=== PATIENT | female | born 1965 | race Caucasian/White ===

== ENCOUNTER 2018-01-06 16:46 | Emergency (ER) | payer OTHER ==
[2018-01-06 17:10] VITALS: BP 157/81
[2018-01-06] MEDS ORDERED: Ketorolac 60 MG/2 ML SDV IM ONE (17:22)
--- NOTE | 2018-01-06 17:34 | EDM.PDOC ---
ED HPI GENERAL MEDICAL PROBLEM - General Chief Complaint: Back Pain or Injury Stated Complaint: FELL AND HURT RT RIBS AND RT KNEE Time Seen by Provider: 01/06/18 17:15 Source of Information: Reports: Patient, Family History Limitations: Reports: No Limitations - History of Present Illness INITIAL COMMENTS - FREE TEXT/NARRATIVE: 52-year-old female was at a local store when she stumbled forward landing on her knees and hands. She has pain and swelling on the anterior aspect of the right knee which she has had a partial knee surgery in the past. She also pulled some muscles or hurt her ribs on the right flank area. Only her knees actually struck the floor. No shortness of breath and she has minimal pain when sitting still. Onset: Sudden Duration: Hour(s): (Within the past hour) Location: Reports: Chest (Right flank area), Back, Lower Extremity, Right Associated Symptoms: Reports: Chest Pain (Right posterior chest is sore). Denies: Headaches, Nausea/Vomiting, Shortness of Breath Right Lower Chest Pain Score (Numeric/FACES): 6 - Related Data Allergies Allergy/AdvReac Type Severity Reaction Status Date / Time niacin Allergy Unknown Redness Verified 01/06/18 17:05 [From Niaspan Extended-Release] Penicillins Allergy Unknown Rash Verified 01/06/18 17:05 Home Meds: Home Meds Vitamin B Complex with C [Super B Complex With C] 1 cap PO DAILY 01/16/15 [ History] Esomeprazole Magnesium [Nexium] 20 mg PO DAILY 01/06/18 [History] Past Medical History HEENT History: Reports: Impaired Vision Other Cardiovascular History: seratonin imbalance Gastrointestinal History: Reports: GERD Musculoskeletal History: Reports: Connective Tissue Disease, Fracture Psychiatric History: Reports: Depression - Infectious Disease History Infectious Disease History: Reports: Chicken Pox - Past Surgical History Other HEENT Surgeries/Procedures: eye surgery when a young child Female Surgical History: Reports: Hysterectomy Social & Family History - Tobacco Use Smoking Status *Q: Never Smoker Second Hand Smoke Exposure: No - Caffeine Use Caffeine Use: Reports: Coffee, Energy Drinks, Soda, Tea - Recreational Drug Use Recreational Drug Use: No ED ROS GENERAL - Review of Systems Review Of Systems: See Below Constitutional: Denies: Fever, Chills Respiratory: Reports: Pleuritic Chest Pain. Denies: Shortness of Breath Cardiovascular: Reports: Chest Pain GI/Abdominal: Denies: Abdominal Pain, Nausea, Vomiting : Reports: No Symptoms Skin: Reports: Bruising (Some bruising is present over the anterior aspect of the right knee) Neurological: Reports: Other (Her knee feels "numb".) ED EXAM, GENERAL - Physical Exam Exam: See Below Exam Limited By: No Limitations General Appearance: Alert, No Apparent Distress (No significant distress when laying still, she is very uncomfortable with movement) Head: Atraumatic Neck: Supple, Non-Tender Respiratory/Chest: No Respiratory Distress, Lungs Clear, Other (She reacts with exquisite tenderness to palpation along the right posterior ribs in the flank area, there is no crepitus or bruising) Cardiovascular: Regular Rate, Rhythm Extremities: Other (Some bruising and swelling is present over the anterior tibial plateau just distal to the patella. Valgus and varus stress to the knee is stable and nontender, patella is nontender) Course - Vital Signs Last Recorded V/S: Last Vital Signs Temp 98.3 F 01/06/18 17:15 Pulse 80 01/06/18 17:15 Resp 18 01/06/18 17:15 BP 157/81 H 01/06/18 17:15 Pulse Ox 98 01/06/18 17:15 - Orders/Labs/Meds Orders: Active Orders 24 hr Category Date Time Status Chest 2V [CR] Routine Exams 01/06/18 17:21 Taken Knee 3V Rt [CR] Stat Exams 01/06/18 17:21 Taken Meds: Medications Discontinued Medications Generic Name Dose Route Start Last Admin Trade Name João PRN Reason Stop Dose Admin Ketorolac Tromethamine 60 mg 01/06/18 17:22 01/06/18 17:25 Toradol IM 01/06/18 17:23 60 mg ONETIME ONE Administration - Re-Assessments/Exams Free Text/Narrative Re-Assessment/Exam: 01/06/18 17:34 A two-view chest x-ray and right knee x-ray were obtained after 60 mg of IM Toradol was given. 01/06/18 17:46 Chest x-ray is normal, knee x-ray shows good placement of the medial arthroplasty. A three-inch Sharan wrap was applied to the knee, the patient was given 10 hydrocodone for extra pain control and will take ibuprofen and ice down sore areas. Recheck in 3-4 days if not improving satisfactorily. Departure - Departure Time of Disposition: 17:57 Disposition: Home, Self-Care 01 Condition: Good Clinical Impression: Contusion of right knee Qualifiers: Encounter type: initial encounter Qualified Code(s): S80.01XA - Contusion of right knee, initial encounter Strain of chest wall Qualifiers: Encounter type: initial encounter Qualified Code(s): S29.011A - Strain of muscle and tendon of front wall of thorax, initial encounter - Discharge Information Instructions: Contusion, [id number] Referrals: Adarsh Colon HEALTHCARE TRANSLATOR [Primary Care Provider] - Forms: ED Department Discharge Care Plan Goals: Wrap knee for comfort, ice sore areas for the next 2 days and a regular dose of ibuprofen should help. Use stronger pain medications if needed especially when trying to rest. Increase activity as tolerated and consider rechecking in 4-6 days if not improving satisfactorily. - My Orders Last 24 Hours: My Active Orders 01/06/18 17:21 Chest 2V [CR] Routine Knee 3V Rt [CR] Stat - Assessment/Plan Last 24 Hours: My Active Orders 01/06/18 17:21 Chest 2V [CR] Routine Knee 3V Rt [CR] Stat
--- NOTE | 2018-01-09 09:21 | CR ---
Knee 3V Rt CLINICAL HISTORY: Knee pain, fall FINDINGS: No acute fracture or dislocation is noted. There are no osseous lesions. Patient has a medi al compartment hemiarthroplasty. There is some generalized periprosthetic lucency. Impression: No acute fracture Medial hemiarthroplasty. There is some periprosthetic lucency. This is nonspecific but can be seen wi th loosening
--- NOTE | 2018-01-09 09:45 | CR ---
CHEST: 2 view CLINICAL HISTORY:Fall, injury COMPARISON:None FINDINGS: Heart size and pulmonary vascular are normal. There are atherosclerotic changes in the aor ta. Lung arellano are clear.. IMPRESSION: No acute cardiopulmonary process
== END 2018-01-06 17:57 | disposition home or self-care (01) ==
LOC: JP.ED 16:46
DX: S29.011A Strain of muscle and tendon of front wall of thorax, initial encounter (principal); S80.01XA Contusion of right knee, initial encounter; K21.9 Gastro-esophageal reflux disease without esophagitis; Z79.899 Other long term (current) drug therapy; Z88.0 Allergy status to penicillin; Z88.8 Allergy status to other drugs, medicaments and biological substances; W18.30XA Fall on same level, unspecified, initial encounter
CPT/HCPCS: 71046; 73562; 96372; 99284; J1885

== ENCOUNTER 2018-08-26 22:24 | Emergency (ER) | payer BC, OTHER ==
[2018-08-26 22:39] VITALS: BP 176/93
--- NOTE | 2018-08-26 22:53 | EDM.PDOC ---
ED HPI GENERAL MEDICAL PROBLEM - General Chief Complaint: Respiratory Problem Stated Complaint: cough panic attack Time Seen by Provider: 08/26/18 22:40 Source of Information: Reports: Patient, Old Records, RN History Limitations: Reports: No Limitations - History of Present Illness INITIAL COMMENTS - FREE TEXT/NARRATIVE: 52 yo female non-smoker with no hx of asthma presents with onset today of a dry cough that is now keeping her awake. Has some rhinorrhea. No fever. Mild SOB associated wit severe coughing spells only. No chest pain. Onset: Today Onset Date: 08/26/18 Duration: Hour(s):, Getting Worse Location: Reports: Chest Quality: Reports: Other (no pain) Severity: Moderate Improves with: Reports: None Worsens with: Reports: Other (lying down, time) Context: Reports: Other (See HPI) Associated Symptoms: Reports: Shortness of Breath (with coughing only). 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 (see below) (none) - Related Data Allergies Allergy/AdvReac Type Severity Reaction Status Date / Time niacin Allergy Unknown Redness Verified 08/26/18 22:39 [From Niaspan Extended-Release] Home Meds: Home Meds Esomeprazole Magnesium [Nexium] 20 mg PO DAILY 01/06/18 [History] Past Medical History HEENT History: Reports: Impaired Vision Other Cardiovascular History: seratonin imbalance Gastrointestinal History: Reports: GERD Musculoskeletal History: Reports: Connective Tissue Disease, Fracture Psychiatric History: Reports: Depression - Infectious Disease History Infectious Disease History: Reports: Chicken Pox - Past Surgical History Other HEENT Surgeries/Procedures: eye surgery when a young child Female Surgical History: Reports: Hysterectomy Musculoskeletal Surgical History: Reports: Knee Replacement Social & Family History - Tobacco Use Smoking Status *Q: Never Smoker - Caffeine Use Caffeine Use: Reports: Coffee, Soda - Recreational Drug Use Recreational Drug Use: No ED ROS GENERAL - Review of Systems Review Of Systems: See Below Constitutional: Reports: No Symptoms HEENT: Reports: Rhinitis (clear). Denies: Ear Pain, Sinus Problem, Throat Pain Respiratory: Reports: Shortness of Breath (with coughing only), Cough Cardiovascular: Reports: No Symptoms GI/Abdominal: Reports: No Symptoms : Reports: No Symptoms Skin: Reports: No Symptoms Neurological: Reports: No Symptoms Psychiatric: Reports: Anxiety ED EXAM, GENERAL - Physical Exam Exam: See Below Exam Limited By: No Limitations General Appearance: Alert, WD/WN, No Apparent Distress, Anxious Eye Exam: Bilateral Eye: Normal Inspection Ears: Normal External Exam, Normal Canal, Hearing Grossly Normal, Normal TMs Ear Exam: Bilateral Ear: Auricle Normal, Canal Normal, TM normal Nose: Normal Inspection, Normal Mucosa, No Blood Throat/Mouth: Normal Inspection, Normal Lips, Normal Oropharynx, Normal Voice, No Airway Compromise Head: Atraumatic, Normocephalic Neck: Normal Inspection Respiratory/Chest: No Respiratory Distress, Lungs Clear, Normal Breath Sounds, No Accessory Muscle Use, Other (dry cough). No: Respiratory Distress, Decreased Breath Sounds, Crackles, Rales, Wheezing, Stridor, Accessory Muscle Use, Retractions, Prolonged Expiration Cardiovascular: Regular Rate, Rhythm, No Edema Back Exam: Normal Inspection. No: CVA Tenderness (R), CVA Tenderness (L) Extremities: Normal Inspection, Normal Range of Motion, Non-Tender, No Pedal Edema Neurological: Alert, Oriented, CN II-XII Intact, Normal Cognition, No Motor/ Sensory Deficits Psychiatric: Normal Affect, Normal Mood Skin Exam: Warm, Dry, Intact, Normal Color, No Rash Lymphatic: No Adenopathy Course - Vital Signs Last Recorded V/S: Last Vital Signs Temp 35.4 C 08/26/18 22:41 Pulse 87 08/26/18 22:41 Resp 16 08/26/18 22:41 BP 176/93 H 08/26/18 22:41 Pulse Ox 98 08/26/18 22:41 Departure - Departure Time of Disposition: 22:52 Disposition: Home, Self-Care 01 Condition: Good Clinical Impression: Viral URI with cough - Discharge Information *PRESCRIPTION DRUG MONITORING PROGRAM REVIEWED*: No *COPY OF PRESCRIPTION DRUG MONITORING REPORT IN PATIENT PAULINO: No Instructions: Viral Respiratory Infection, [id number] Referrals: Adarsh Colon NP [Primary Care Provider] - Additional Instructions: Use Robitussin with codeine as directed for control of your cough. Drink ample fluids. Wash your hands often to reduce spread. Recheck with your doctor as needed.
== END 2018-08-26 23:09 | disposition home or self-care (01) ==
LOC: JP.ED 22:24
DX: J06.9 Acute upper respiratory infection, unspecified (principal); Z88.8 Allergy status to other drugs, medicaments and biological substances
CPT/HCPCS: 99282

== ENCOUNTER 2019-02-07 08:44 | Day surgery (SDC) | payer BC ==
[2019-02-07] MEDS ORDERED: Sodium Chloride 0.9% 1,000 ML IV SCH ×2 (09:15)
[2019-02-07] MEDS ORDERED: fentaNYL 100 MCG/2 ML SDV ONE (09:38)
[2019-02-07] MEDS ORDERED: Propofol 200 MG/20 ML SDV ONE ×2 (09:38→10:30)
[2019-02-07] MEDS ORDERED: Midazolam 1 MG/ML 2 ML SDV ONE (09:38)
[2019-02-07 11:22] VITALS: BP 125/84; PULSE 75
--- NOTE | 2019-02-07 15:20 | OR ---
DATE OF PROCEDURE: 02/07/2019 SURGEON: Niranjan Martinez MD PROCEDURES: 1. Esophagogastroduodenoscopy. 2. Colonoscopy. FINDINGS: 1. Mild inflammation at the GE junction concerning for gastroesophageal reflux disease (biopsied x6). 2. Normal colonoscopy. COMPLICATIONS: None. RECYCLABLE MATERIALS DISTRIBUTOR: None. PREOPERATIVE DIAGNOSIS: Concern for gastroesophageal reflux disease and screening colonoscopy. POSTOPERATIVE DIAGNOSIS: Concern for gastroesophageal reflux disease and screening colonoscopy. RISKS: Risks, benefits, alternatives, and limitations including, but not limited to infection, bleeding, and perforation were explained to the patient, who wished to proceed. PROCEDURE IN DETAIL: The patient was placed in left lateral decubitus position. EGD scope was introduced and advanced atraumatically to the second part of the duodenum. No evidence of duodenitis or ulceration. Within the stomach itself, no gastritis or abnormality. Mild inflammation at GE junction was concerning for reflux disease. This was biopsied x6 using cold biopsy forceps. The remainder of esophagus was normal. Digital rectal exam was performed next. The scope was introduced and advanced atraumatically to the ileocecal valve. A photo was taken. The scope was brought back through the ascending, transverse, descending colon, and retroflexed. No old or new blood. No masses. No polyps. No diverticulosis. The patient tolerated the procedure well. Niranjan Martinez MD /[id number]
== END 2019-02-07 12:00 | disposition home or self-care (01) ==
LOC: JP.SDS 08:44
PROVIDERS: ATTEND Surgery
DX: Z12.11 Encounter for screening for malignant neoplasm of colon (principal); K21.0 Gastro-esophageal reflux disease with esophagitis; Z88.0 Allergy status to penicillin; Z88.8 Allergy status to other drugs, medicaments and biological substances
CPT/HCPCS: 43239; 45378; 88305; J2250; J2704; J3010; J7030

== ENCOUNTER 2020-07-07 08:11 | Emergency (ER) | payer BC, OTHER ==
--- NOTE | 2020-07-07 08:30 | EDM.PDOC ---
ED HPI GENERAL MEDICAL PROBLEM - General Chief Complaint: Chest Pain Stated Complaint: CHEST PAIN WITH SOB Time Seen by Provider: 07/07/20 08:25 Source of Information: Reports: Patient, Old Records History Limitations: Reports: No Limitations - History of Present Illness INITIAL COMMENTS - FREE TEXT/NARRATIVE: 54 yo female presents with intermittent anterior chest pain that began this morning at rest. Has had no associated sx's. No past hx of CAD. Is a nonsmoker. FHx not strong for CAD. Was hypertensive on her last visit to the ER and has not been to the clinic since then. Is pain-free here in the ER. Onset: Today Onset Date: 07/07/20 Duration: Hour(s): (onset about 0630h today), Intermittent Location: Reports: Chest Quality: Reports: Pressure (mild) Severity: Mild Improves with: Reports: Other (unknown) Worsens with: Reports: Other (unknown) Context: Reports: Other (See HPI) Associated Symptoms: Reports: Chest Pain, Cough (mild). 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: Other (see below) (none) - Related Data Allergies Allergy/AdvReac Type Severity Reaction Status Date / Time niacin Allergy Unknown Redness Verified 07/07/20 08:26 [From Niaspan Extended-Release] Penicillins Allergy Hives Verified 07/07/20 08:26 Home Meds: Home Meds Acetaminophen [Tylenol Extra Strength] 500 mg PO Q6H PRN 02/05/19 [History] Pantoprazole Sodium [Protonix] 40 mg PO DAILY 02/05/19 [History] Sertraline [Zoloft] 25 mg PO DAILY 02/05/19 [History] Vitamin B Complex [Super B-50 Complex] 1 each PO DAILY 02/05/19 [History] Solifenacin Succinate 5 mg PO DAILY 07/07/20 [History] Past Medical History HEENT History: Reports: Impaired Vision Other Cardiovascular History: seratonin imbalance Gastrointestinal History: Reports: GERD, Irritable Bowel Syndrome Genitourinary History: Reports: None 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: 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 Musculoskeletal History: Reports: Fracture Neurological History: Reports: Migraines Psychiatric History: Reports: Anxiety, Depression - Infectious Disease History Infectious Disease History: Reports: Chicken Pox, Influenza, Measles - Past Surgical History HEENT Surgical History: Reports: Eye Surgery GI Surgical History: Reports: Hernia, Abdominal Female Surgical History: Reports: Hysterectomy, Salpingo-Oophorectomy Neurological Surgical History: Reports: None Social & Family History - Family History Family Medical History: No Pertinent Family History - Caffeine Use Caffeine Use: Reports: Coffee ED ROS GENERAL - Review of Systems Review Of Systems: See Below Constitutional: Reports: No Symptoms HEENT: Reports: No Symptoms Respiratory: Reports: No Symptoms Cardiovascular: Reports: Chest Pain. Denies: Dyspnea on Exertion, Edema, Lightheadedness, Palpitations GI/Abdominal: Reports: No Symptoms Musculoskeletal: Reports: No Symptoms Skin: Reports: No Symptoms Neurological: Reports: No Symptoms ED EXAM, GENERAL - Physical Exam Exam: See Below Exam Limited By: No Limitations General Appearance: Alert, WD/WN, No Apparent Distress, Obese Eye Exam: Bilateral Eye: Normal Inspection Ears: Normal External Exam, Normal Canal, Hearing Grossly Normal, Normal TMs Ear Exam: Bilateral Ear: Auricle Normal, Canal Normal Nose: Normal Inspection, No Blood Throat/Mouth: Normal Inspection, Normal Lips, Normal Oropharynx, Normal Voice, No Airway Compromise Head: Atraumatic, Normocephalic Neck: Normal Inspection Respiratory/Chest: No Respiratory Distress, Lungs Clear, Normal Breath Sounds, No Accessory Muscle Use, Chest Non-Tender Cardiovascular: Regular Rate, Rhythm, No Edema GI/Abdominal: Normal Bowel Sounds, Soft, Non-Tender, No Distention Extremities: Normal Inspection, Normal Range of Motion, Non-Tender, No Pedal Edema. No: Pedal Edema, Mai's Sign Neurological: Alert, Oriented, CN II-XII Intact, Normal Cognition, No Motor/Sensory Deficits Psychiatric: Normal Affect, Normal Mood Skin Exam: Warm, Dry, Intact, Normal Color, No Rash #1 Interpretation EKG Date: 07/07/20 Time: 08:10 Rhythm: NSR Rate (Beats/Min): 67 [place]: Normal P-Wave: Present QRS: Normal ST-T: Normal QT: Normal Comparison: No Change (Possible Q waves in III, AVF.) Course - Vital Signs Last Recorded V/S: Last Vital Signs Temp 36.4 C 07/07/20 08:19 Pulse 56 L 07/07/20 11:20 Resp 16 07/07/20 11:20 BP 132/82 07/07/20 11:20 Pulse Ox 91 L 07/07/20 11:20 - Orders/Labs/Meds Orders: Active Orders 24 hr Category Date Time Status Cardiac Monitoring [RC] .As Directed Care 07/07/20 08:39 Active EKG Documentation Completion [RC] ASDIRECTED Care 07/07/20 08:38 Active EKG 12 Lead [EK] Routine Ther 07/07/20 08:38 Ordered Labs: Laboratory Tests 07/07/20 07/07/20 07/07/20 Range/Units 08:38 08:51 09:20 WBC 5.2 (4.5-11.0) K/uL RBC 4.43 (3.30-5.50) M/uL Hgb 12.7 (12.0-15.0) g/dL Hct 39.3 (36.0-48.0) % MCV 89 (80-98) fL MCH 29 (27-31) pg MCHC 32 (32-36) % Plt Count 254 (150-400) K/uL D-Dimer, Quantitative 535.62 H (0.0-500.0) ng/mL Sodium 142 (140-148) mmol/L Potassium 4.1 (3.6-5.2) mmol/L Chloride 106 (100-108) mmol/L Carbon Dioxide 28 (21-32) mmol/L Anion Gap 7.9 (5.0-14.0) mmol/L BUN 17 (7-18) mg/dL Creatinine 0.9 (0.6-1.0) mg/dL Est Cr Clr Drug Dosing 68.68 mL/min Estimated GFR (MDRD) > 60 (>60) Glucose 93 (74-106) mg/dL Calcium 9.1 (8.5-10.1) mg/dL Troponin I < 0.017 (0.000-0.056) ng/mL 07/07/20 Range/Units 11:00 WBC (4.5-11.0) K/uL RBC (3.30-5.50) M/uL Hgb (12.0-15.0) g/dL Hct (36.0-48.0) % MCV (80-98) fL MCH (27-31) pg MCHC (32-36) % Plt Count (150-400) K/uL D-Dimer, Quantitative (0.0-500.0) ng/mL Sodium (140-148) mmol/L Potassium (3.6-5.2) mmol/L Chloride (100-108) mmol/L Carbon Dioxide (21-32) mmol/L Anion Gap (5.0-14.0) mmol/L BUN (7-18) mg/dL Creatinine (0.6-1.0) mg/dL Est Cr Clr Drug Dosing mL/min Estimated GFR (MDRD) (>60) Glucose (74-106) mg/dL Calcium (8.5-10.1) mg/dL Troponin I < 0.017 (0.000-0.056) ng/mL Meds: Medications Discontinued Medications Generic Name Dose Route Start Last Admin Trade Name Freq PRN Reason Stop Dose Admin Al Hydroxide/Mg Hydroxide 30 ml 07/07/20 09:52 07/07/20 09:59 Mag-Al Plus PO 07/07/20 09:53 30 ml ONETIME ONE Administration Alprazolam 0.25 mg 07/07/20 09:45 07/07/20 09:51 Xanax PO 07/07/20 09:46 0.25 mg ONETIME ONE Administration Aspirin 324 mg 07/07/20 08:39 07/07/20 08:46 Aspirin PO 07/07/20 08:40 324 mg ONETIME ONE Administration Metoprolol Tartrate 50 mg 07/07/20 08:37 07/07/20 08:46 Lopressor PO 07/07/20 08:38 50 mg ONETIME ONE Administration - Re-Assessments/Exams Free Text/Narrative Re-Assessment/Exam: 07/07/20 10:31 Is now feeling pretty good after all our interventions. Will repeat her Trop and if normal walk her around the loop. Needs to go home on a BP med for her HTN. Free Text/Narrative Re-Assessment/Exam: 07/07/20 11:31 No pain with ambulation, 2nd trop normal Departure - Departure Time of Disposition: 11:35 Disposition: Home, Self-Care 01 Condition: Good (HTN) Clinical Impression: Nonspecific chest pain HTN (hypertension) Qualifiers: Hypertension type: unspecified Qualified Code(s): I10 - Essential (primary) hypertension Instructions: Nonspecific Chest Pain, Adult, [id number], Hypertension, Adult, [id number] Referrals: PCP,None [Primary Care Provider] - Forms: ED Department Discharge Additional Instructions: Take Metoprolol succinate 100 mg at bedtime daily starting tonight. Take a baby aspirin daily with food. Try Gaviscon 30 ml as needed for heart burn symptoms. Recheck with your provider within the week for another BP check and ER follow up. Return here as needed. Sepsis Event Note (ED) - Evaluation Sepsis Screening Result: No Definite Risk - Focused Exam Vital Signs: Vital Signs Temp Pulse Pulse Resp BP BP Pulse Ox 07/07/20 11:20 56 L 16 132/82 91 L 07/07/20 10:20 60 16 148/87 H 91 L 07/07/20 09:19 67 14 137/93 H 93 L 07/07/20 08:49 64 16 156/96 H 91 L 07/07/20 08:46 70 179/100 H 07/07/20 08:19 36.4 C 70 16 179/100 H 95 - My Orders Last 24 Hours: My Active Orders 07/07/20 08:38 EKG Documentation Completion [RC] ASDIRECTED EKG 12 Lead [EK] Routine 07/07/20 08:39 Cardiac Monitoring [RC] .As Directed - Assessment/Plan Last 24 Hours: My Active Orders 07/07/20 08:38 EKG Documentation Completion [RC] ASDIRECTED EKG 12 Lead [EK] Routine 07/07/20 08:39 Cardiac Monitoring [RC] .As Directed
[2020-07-07] MEDS ORDERED: Metoprolol Tartrate 50 MG Tab PO ONE (08:37)
[2020-07-07] MEDS ORDERED: Aspirin 81 MG Tab.Chew PO ONE (08:39)
[2020-07-07] MEDS ORDERED: ALPRAZolam 0.25 MG Tab PO ONE (09:45)
[2020-07-07] MEDS ORDERED: Aluminum Hydroxide/Magnesium Hydroxide/Simethicone Susp 30 ML Cup PO ONE (09:52)
[2020-07-07 11:24] VITALS: BP 132/82; PULSE 56
== END 2020-07-07 11:41 | disposition home or self-care (01) ==
LOC: JP.ED 08:11
DX: I10 Essential (primary) hypertension (principal); Z88.8 Allergy status to other drugs, medicaments and biological substances; Z88.0 Allergy status to penicillin; Z79.899 Other long term (current) drug therapy
CPT/HCPCS: 36415; 80048; 84484; 85027; 85379; 93005; 99284; 99285; A9270

== ENCOUNTER 2021-05-23 08:23 | Emergency (ER) | payer OTHER ==
[2021-05-23 08:40] VITALS: BP 144/69; PULSE 80
== END 2021-05-23 09:50 | disposition home or self-care (01) ==
LOC: JP.ED 08:23
DX: R07.89 Other chest pain (principal); F41.9 Anxiety disorder, unspecified; I10 Essential (primary) hypertension; K21.9 Gastro-esophageal reflux disease without esophagitis; Z88.1 Allergy status to other antibiotic agents; Z88.8 Allergy status to other drugs, medicaments and biological substances; Z79.899 Other long term (current) drug therapy
CPT/HCPCS: 36415; 80048; 84484; 85025; 93005; 93010; 99284; 99285-25

== ENCOUNTER 2022-01-06 17:43 | Emergency (ER) | payer OTHER ==
[2022-01-06 18:07] VITALS: BP 155/79; PULSE 70
[2022-01-06] MEDS ORDERED: Sodium Chloride 0.9% 10 ML Syringe FLUSH PRN (18:43)
[2022-01-06] MEDS ORDERED: Sodium Chloride 0.9% 1,000 ML IV STA (18:43)
[2022-01-06] MEDS ORDERED: Iopamidol 612 MG/ML 100 ML Bottle IV SCH (19:00)
[2022-01-06] MEDS ORDERED: Sodium Chloride 0.9% 75 ML IV SCH (19:00)
== END 2022-01-06 20:52 | disposition home or self-care (01) ==
LOC: JP.ED 17:43
DX: R10.84 Generalized abdominal pain (principal); I10 Essential (primary) hypertension; F41.9 Anxiety disorder, unspecified; F32.A Depression, unspecified; K21.9 Gastro-esophageal reflux disease without esophagitis; Z79.899 Other long term (current) drug therapy; Z88.0 Allergy status to penicillin; Z88.8 Allergy status to other drugs, medicaments and biological substances
CPT/HCPCS: 74177; 96360; 96361; 99284; J3490; J7030; Q9967

== ENCOUNTER 2022-01-13 08:48 | Day surgery (SDC) | payer OTHER ==
[2022-01-13] MEDS ORDERED: Propofol 200 MG/20 ML SDV ONE (08:51)
[2022-01-13] MEDS ORDERED: fentaNYL 100 MCG/2 ML SDV ONE (08:51)
[2022-01-13] MEDS ORDERED: Midazolam 1 MG/ML 2 ML SDV ONE (08:51)
[2022-01-13] MEDS ORDERED: Sodium Chloride 0.9% 1,000 ML IV SCH (09:30)
[2022-01-13 11:45] VITALS: BP 152/90; PULSE 77
== END 2022-01-13 11:47 | disposition home or self-care (01) ==
LOC: JP.SDS 08:48
PROVIDERS: ATTEND Surgery
DX: K22.89 Other specified disease of esophagus (principal); K21.00 Gastro-esophageal reflux disease with esophagitis, without bleeding; E66.9 Obesity, unspecified; Z68.33 Body mass index [BMI] 33.0-33.9, adult
CPT/HCPCS: 43239; J2250; J2704; J3010; J7030; 88305

== ENCOUNTER 2022-05-23 09:16 | Emergency (ER) | payer OTHER ==
[2022-05-23 09:29] VITALS: BP 168/70; PULSE 79
[2022-05-23] MEDS ORDERED: Ketorolac 30 MG/ML SDV IM ONE (09:46)
== END 2022-05-23 10:50 | disposition home or self-care (01) ==
LOC: JP.ED 09:16
DX: S80.01XA Contusion of right knee, initial encounter (principal); I10 Essential (primary) hypertension; K21.9 Gastro-esophageal reflux disease without esophagitis; E66.9 Obesity, unspecified; Z68.33 Body mass index [BMI] 33.0-33.9, adult; Z88.0 Allergy status to penicillin; Z88.1 Allergy status to other antibiotic agents; Z86.16 Personal history of COVID-19; W00.0XXA Fall on same level due to ice and snow, initial encounter
CPT/HCPCS: 73564; 96372; 99283; J1885

== ENCOUNTER 2022-06-15 19:47 | Emergency (ER) | payer OTHER ==
[2022-06-15 20:03] VITALS: BP 136/76; PULSE 72
[2022-06-15] MEDS ORDERED: Albuterol/Ipratropium 3.0-0.5 MG/3 ML Neb Soln NEB ONE (20:24)
== END 2022-06-15 20:54 | disposition home or self-care (01) ==
LOC: JP.ED 19:47
DX: J44.9 Chronic obstructive pulmonary disease, unspecified (principal); J01.00 Acute maxillary sinusitis, unspecified; I10 Essential (primary) hypertension; Z88.0 Allergy status to penicillin; Z88.8 Allergy status to other drugs, medicaments and biological substances; Z79.899 Other long term (current) drug therapy; Z86.16 Personal history of COVID-19; Z90.710 Acquired absence of both cervix and uterus
CPT/HCPCS: 94640; 99283; J7620

== ENCOUNTER 2022-10-13 16:30 | Emergency (ER) | payer OTHER ==
[2022-10-13 16:58] VITALS: BP 171/95; PULSE 82
[2022-10-13] MEDS ORDERED: Acetaminophen 325 MG Tab PO ONE (17:02)
== END 2022-10-13 17:46 | disposition home or self-care (01) ==
LOC: JP.ED 16:30
DX: S16.1XXA Strain of muscle, fascia and tendon at neck level, initial encounter (principal); S00.03XA Contusion of scalp, initial encounter; I10 Essential (primary) hypertension; K21.9 Gastro-esophageal reflux disease without esophagitis; E66.9 Obesity, unspecified; Z68.33 Body mass index [BMI] 33.0-33.9, adult; Z86.16 Personal history of COVID-19; Z88.1 Allergy status to other antibiotic agents; Z88.0 Allergy status to penicillin; Z79.899 Other long term (current) drug therapy; V49.59XA Passenger injured in collision with other motor vehicles in traffic accident, initial encounter; Y92.410 Unspecified street and highway as the place of occurrence of the external cause
CPT/HCPCS: 99283; A9270

== ENCOUNTER 2022-12-03 07:54 | Emergency (ER) | payer OTHER ==
[2022-12-03 08:14] VITALS: BP 173/91; PULSE 61
[2022-12-03] MEDS ORDERED: tiZANidine 2 MG Tab PO STA (08:31)
[2022-12-03] MEDS ORDERED: fentaNYL 100 MCG/2 ML SDV IM ONE (08:31)
[2022-12-03 08:41] LABS: BASOPHILS PERCENT AUTO 0.2 % (0.1-1.3); EOSINOPHILS ABSOLUTE AUTO 0.08 K/uL (0.00-0.40); EOSINOPHILS PERCENT AUTO 1.4 % (0.0-5.4); HEMATOCRIT 37.2 % (34.3-46.0); HEMOGLOBIN 12.5 g/dL (11.2-15.5); IMMATURE GRAN PERCENT AUTO 0.4 % (0.0-0.7); LYMPHOCYTES ABSOLUTE AUTO 1.71 K/uL (0.8-3.3); LYMPHOCYTES PERCENT AUTO 30.5 % (11.4-47.7); MEAN CORPUSCULAR HEMOGLOBIN 29.1 pg (31.6-35.5); MEAN CORPUSCULAR HGB CONC 33.6 g/dL (31.6-35.5); MEAN CORPUSCULAR VOLUME 86.7 fL (81.4-99.0); MONOCYTES ABSOLUTE AUTO 0.45 K/uL (0.20-0.90); NEUTROPHILS ABSOLUTE AUTO 3.34 K/uL (1.0-7.6); NEUTROPHILS PERCENT AUTO 59.5 % (40.0-78.1); PLATELET COUNT,PLT 211 K/uL (130-375); RED BLOOD CELL COUNT 4.29 M/uL (3.77-5.24); WHITE BLOOD CELL COUNT,WBC 5.6 K/uL (3.2-11.0)
[2022-12-03 08:42] LABS: BASOPHILS ABSOLUTE AUTO 0.01 K/uL (0.00-0.10); IMMATURE GRAN ABSOLUTE AUTO 0.02 K/uL (0.00-0.23)
[2022-12-03 09:04] LABS: ANION GAP 13.8 mmol/L (5.0-14.0); CALCIUM 8.6 mg/dL (8.5-10.1); CREATININE 0.9 mg/dL (0.6-1.0); EST CRCL DRUG DOSING (CG) 66.26 mL/min; POTASSIUM,K 3.8 mmol/L (3.6-5.2); TROPONIN I HIGH SENSITIVITY 5.1 pg/mL (<=60.3)
== END 2022-12-03 10:04 | disposition home or self-care (01) ==
LOC: JP.ED 07:54
DX: M79.601 Pain in right arm (principal); I10 Essential (primary) hypertension; K21.9 Gastro-esophageal reflux disease without esophagitis; E66.9 Obesity, unspecified; Z68.32 Body mass index [BMI] 32.0-32.9, adult; Z86.16 Personal history of COVID-19; Z88.0 Allergy status to penicillin; Z88.1 Allergy status to other antibiotic agents; Z88.8 Allergy status to other drugs, medicaments and biological substances; Z79.899 Other long term (current) drug therapy
CPT/HCPCS: 36415; 80048; 84484; 85025; 96372; 99283; A9270; J3010

== ENCOUNTER 2023-06-23 08:36 | Emergency (ER) | payer BC, OTHER ==
[2023-06-23] MEDS: LORazepam 0.5 MG Tab PO ONE (09:23)
[2023-06-23 09:33] LABS: BASOPHILS PERCENT AUTO 0.2 % (0.1-1.3); EOSINOPHILS ABSOLUTE AUTO 0.05 K/uL (0.00-0.40); EOSINOPHILS PERCENT AUTO 0.8 % (0.0-5.4); HEMATOCRIT 38.1 % (34.3-46.0); HEMOGLOBIN 13.2 g/dL (11.2-15.5); IMMATURE GRAN PERCENT AUTO 0.2 % (0.0-0.7); LYMPHOCYTES ABSOLUTE AUTO 2.03 K/uL (0.8-3.3); LYMPHOCYTES PERCENT AUTO 30.6 % (11.4-47.7); MEAN CORPUSCULAR HEMOGLOBIN 30.3 pg (31.6-35.5); MEAN CORPUSCULAR HGB CONC 34.6 g/dL (31.6-35.5); MEAN CORPUSCULAR VOLUME 87.4 fL (81.4-99.0); MONOCYTES ABSOLUTE AUTO 0.41 K/uL (0.20-0.90); MONOCYTES PERCENT AUTO 6.2 % (3.3-12.6); NEUTROPHILS ABSOLUTE AUTO 4.12 K/uL (1.0-7.6); PLATELET COUNT,PLT 234 K/uL (130-375); RED BLOOD CELL COUNT 4.36 M/uL (3.77-5.24); WHITE BLOOD CELL COUNT,WBC 6.6 K/uL (3.2-11.0)
[2023-06-23 09:33] LABS: APPEARANCE,URINE CLEAR (CLEAR); BILIRUBIN,URINE NEGATIVE (NEGATIVE); COLOR,URINE YELLOW (YELLOW); GLUCOSE,URINE NEGATIVE (NEGATIVE); KETONES,URINE NEGATIVE (NEGATIVE); LEUKOCYTE ESTERASE,URINE SMALL (NEGATIVE); NITRITE,URINE NEGATIVE (NEGATIVE); OCCULT BLOOD,URINE SMALL (NEGATIVE); PROTEIN,URINE NEGATIVE (NEGATIVE); UROBILINOGEN,URINE 0.2 EU/dL (0.2-1.0)
[2023-06-23 09:40] LABS: BASE EXCESS VENOUS 3.4 mm/L; BICARBONATE,VENOUS 28.1 mmol/L; METHEMOGLOBIN 0.9 %; O2 SATURATION VENOUS 57.1; OXYHEMOGLOBIN 55.4 %; PH,VENOUS 7.412 (7.350-7.450); TOTAL HEMOGLOBIN 13.7 g/dL (12.0-16.0)
[2023-06-23 09:43] LABS: AMPHETAMINES SCREEN, URINE NEGATIVE (NEGATIVE); BARBITURATE SCREEN,URINE NEGATIVE (NEGATIVE); BENZODIAZEPINES SCREEN,URINE NEGATIVE (NEGATIVE); METHADONE SCREEN, URINE NEGATIVE (NEGATIVE); METHAMPHETAMINES SCREEN, URINE NEGATIVE (NEGATIVE); OXYCODONE SCREEN,URINE NEGATIVE (NEGATIVE); PROPOXYPHENE SCREEN,URINE NEGATIVE (NEGATIVE); THC SCREEN,URINE 50 NG/ML NEGATIVE (NEGATIVE)
[2023-06-23 09:44] LABS: AMORPHOUS SEDIMENT,URINE NOT SEEN; BACTERIA,URINE NOT SEEN; EPITHELIAL CELLS,URINE NOT SEEN; MUCUS,URINE FEW; RBC,URINE 0-5 (0-5); WBC,URINE 0-5 (0-5)
[2023-06-23 09:44] LABS: BASOPHILS ABSOLUTE AUTO 0.01 K/uL (0.00-0.10); IMMATURE GRAN ABSOLUTE AUTO 0.01 K/uL (0.00-0.23)
[2023-06-23 09:51] LABS: PROTHROMBIN TIME 10.4 sec (9.2-10.6)
[2023-06-23 09:59] LABS: A/G RATIO 0.9 (1.2-2.2); ALANINE AMINOTRANSFERASE,ALT 15 U/L (12-78); ALBUMIN 3.5 g/dL (3.4-5.0); ALKALINE PHOSPHATASE 44 U/L (46-116); ASPARTATE AMNIOTRANSFERASE,AST 15 U/L (15-37); BILIRUBIN TOTAL 0.4 mg/dL (0.2-1.0); BLOOD UREA NITROGEN,BUN 17 mg/dL (7-18); CALCIUM 8.3 mg/dL (8.5-10.1); CARBON DIOXIDE,CO2 30 mmol/L (21-32); CHLORIDE,CL 103 mmol/L (100-108); CREATININE 0.9 mg/dL (0.6-1.0); EST CRCL DRUG DOSING (CG) 66.26 mL/min; ESTIMATED GFR 74 mL/min (>60); GLUCOSE RANDOM 101 mg/dL (74-106); POTASSIUM,K 4.2 mmol/L (3.6-5.2); PROTEIN TOTAL,TP 7.4 g/dL (6.4-8.2); SODIUM,NA 139 mmol/L (140-148); TROPONIN I HIGH SENSITIVITY 8.6 pg/mL (<=60.3)
[2023-06-23 10:02] LABS: ANION GAP 10.2 mmol/L (5.0-14.0)
[2023-06-23 10:11] LABS: CORONAVIRUS COVID-19 NAA NEGATIVE (NEGATIVE); INFLUENZA A NAA NEGATIVE (NEGATIVE); INFLUENZA B NAA NEGATIVE (NEGATIVE); RESPIRATORY SYNCYTIAL VIR NAA NEGATIVE (NEGATIVE)
[2023-06-23] MEDS: Iopamidol 755 Mg/ML 100 ML Bottle IV ONE (11:16)
[2023-06-23] MEDS: Sodium Chloride 0.9% 100 ML IV SCH (11:16)
[2023-06-23 12:07] VITALS: BP 127/74; PULSE 63
== END 2023-06-23 12:14 | disposition home or self-care (01) ==
LOC: JP.ED 08:36
DX: F06.4 Anxiety disorder due to known physiological condition (principal); R07.89 Other chest pain; I10 Essential (primary) hypertension; K21.9 Gastro-esophageal reflux disease without esophagitis; Z86.16 Personal history of COVID-19; Z88.8 Allergy status to other drugs, medicaments and biological substances; Z88.2 Allergy status to sulfonamides; Z79.899 Other long term (current) drug therapy
CPT/HCPCS: 0241U; 36415; 71045; 71275; 80053; 80305; 81001; 82803; 84484; 85025; 85379; 85610; 93005; 99285; A9270; J3490; Q9967

== ENCOUNTER 2025-01-13 04:54 | Emergency (ER) | payer BC ==
[2025-01-13] MEDS: LORazepam 2 MG/ML SDV IM PRN (05:16)
[2025-01-13 05:34] VITALS: PULSE 78
[2025-01-13 06:51] VITALS: BP 161/96
== END 2025-01-13 06:52 | disposition home or self-care (01) ==
LOC: JP.ED 04:54
DX: F44.5 Conversion disorder with seizures or convulsions (principal); I10 Essential (primary) hypertension; K21.9 Gastro-esophageal reflux disease without esophagitis; Z88.0 Allergy status to penicillin; Z79.899 Other long term (current) drug therapy; Z90.710 Acquired absence of both cervix and uterus
CPT/HCPCS: 96372; 99284; 99285; J1790; J2060

== ENCOUNTER 2025-01-17 12:56 | Emergency (ER) | payer BC ==
[2025-01-17 13:14] VITALS: BP 143/86; PULSE 70
== END 2025-01-17 16:01 | disposition home or self-care (01) ==
LOC: JP.ED 12:56
DX: R25.1 Tremor, unspecified (principal); F41.9 Anxiety disorder, unspecified; I10 Essential (primary) hypertension; K21.9 Gastro-esophageal reflux disease without esophagitis; E66.9 Obesity, unspecified; Z68.29 Body mass index [BMI] 29.0-29.9, adult; Z90.710 Acquired absence of both cervix and uterus; Z88.0 Allergy status to penicillin; Z88.8 Allergy status to other drugs, medicaments and biological substances; Z79.899 Other long term (current) drug therapy
CPT/HCPCS: 99283; 99284

== ENCOUNTER 2025-03-07 14:46 | Emergency (ER) | payer BC ==
[2025-03-07 17:24] VITALS: BP 133/91; PULSE 67
[2025-03-07] MEDS: LORazepam 2 MG/ML SDV IVPUSH ONE (17:34)
[2025-03-07] MEDS: LORazepam 2 MG/ML SDV IM ONE (17:35)
== END 2025-03-07 17:49 | disposition home or self-care (01) ==
LOC: JP.ED 14:46
DX: R56.9 Unspecified convulsions (principal); I10 Essential (primary) hypertension; K21.9 Gastro-esophageal reflux disease without esophagitis; E66.9 Obesity, unspecified; Z88.0 Allergy status to penicillin; Z88.8 Allergy status to other drugs, medicaments and biological substances; Z79.899 Other long term (current) drug therapy; Z90.710 Acquired absence of both cervix and uterus
CPT/HCPCS: 96374; 99284; J2060